=== PATIENT | female | born 1990 | race Caucasian/White ===

== ENCOUNTER 2023-07-06 12:55 | Outpatient (CLI) | payer BC ==
[~2023-07-06 12:55] MED LIST: Iopamidol 300 61% 100 ML VIAL FS ONE
== END 2023-07-06 12:56 | disposition home or self-care (01) ==
LOC: CSHRAD 12:55
PROVIDERS: ATTEND Obstetrics & Gynecology
DX: Z86.19 Personal history of other infectious and parasitic diseases (principal)
CPT/HCPCS: 58340; 74740; Q9967